=== PATIENT | female | born 1950 | race Caucasian/White ===

== ENCOUNTER 2017-04-03 15:35 | Outpatient (CLI) | payer MEDICARE, OTHER | END 2017-04-03 15:36 | disposition home or self-care (01) | LOC: BICMAMMO 15:35 | PROVIDERS: ATTEND Internal Medicine | DX: Z12.31 Encounter for screening mammogram for malignant neoplasm of breast (principal); Z80.3 Family history of malignant neoplasm of breast | CPT/HCPCS: 77063; 77067 ==

== ENCOUNTER 2018-10-29 14:42 | Outpatient (CLI) | payer MEDICARE, OTHER ==
--- NOTE | 2018-11-02 06:47 | MMO ---
Bilateral MAMMO Bilat Screen [facility]. CLINICAL HISTORY: Patient is 67 years old and is seen for screening. The patient has the following family history of breast cancer: paternal aunt, at age 80. The patient has no personal history of cancer. The patient has a history of left Excisional Biopsy in 1990 - benign. VIEWS: The views performed were: bilateral craniocaudal with tomosynthesis and bilateral mediolateral oblique with tomosynthesis. FILMS COMPARED: The present examination has been compared to prior imaging studies performed at [facility] on 11/05/2011, 01/06/2014, 11/06/2015 and 04/03/2017. MAMMOGRAM FINDINGS: The breasts are extremely dense, which may lower the sensitivity of mammography. There are benign appearing calcifications seen in both breasts. There are no suspicious masses, suspicious calcifications, or new areas of architectural distortion. IMPRESSION: THERE IS NO MAMMOGRAPHIC EVIDENCE OF MALIGNANCY. A ROUTINE FOLLOW-UP MAMMOGRAM IN 1 YEAR IS RECOMMENDED. THE RESULTS OF THIS EXAM WERE SENT TO THE PATIENT. ACR BI-RADS Category 2 - Benign finding MAMMOGRAPHY NOTE: 1. A negative mammogram report should not delay a biopsy if a dominant of clinically suspicious mass is present. 2. Approximately 10% to 15% of breast cancers are not detected by mammography. 3. Adenosis and dense breasts may obscure an underlying neoplasm. Reported by: BONNY BUTTS MD Electonically Signed: [id number]
== END 2018-10-29 14:43 | disposition home or self-care (01) ==
LOC: BICMAMMO 14:42
PROVIDERS: ATTEND Internal Medicine
DX: Z12.31 Encounter for screening mammogram for malignant neoplasm of breast (principal); Z80.3 Family history of malignant neoplasm of breast
CPT/HCPCS: 77063; 77067

== ENCOUNTER 2019-01-17 13:59 | Outpatient (CLI) | payer MEDICARE, OTHER ==
--- NOTE | 2019-01-17 14:42 | CT ---
CT ABDOMEN AND PELVIS WITHOUT CONTRAST: Date: 01/17/19 PROVIDED CLINICAL HISTORY: Microhematuria. FINDINGS: No comparisons. The visualized lung bases are free of significant opacity. There is no evidence for urinary tract calculi or hydronephrosis. Circumscribed foci of fluid attenua tion seen within each kidney, incompletely characterized in the absence of IV contrast, but statistic ally reflecting cysts. The solid abdominal organs are suboptimally evaluated in the absence of IV contrast material, but dem onstrate an otherwise unremarkable unenhanced CT appearance. There is no bowel dilatation, inflammatory fat stranding, free fluid, or lymph node enlargement appar ent. There is moderate colonic fecal retention. The osseous structures demonstrate no concerning lytic or blastic lesions. Lumbar spine degenerative changes are seen. IMPRESSION: No evidence for urinary tract calculi or hydronephrosis. POS: TPC
== END 2019-01-17 14:00 | disposition home or self-care (01) ==
LOC: BICCT 13:59
PROVIDERS: ATTEND Urology
DX: R31.29 Other microscopic hematuria (principal)
CPT/HCPCS: 74176

== ENCOUNTER 2019-02-02 13:12 | Outpatient (CLI) | payer MEDICARE, OTHER ==
--- NOTE | 2019-02-02 14:34 | ULT ---
BILATERAL RENAL ULTRASOUND: HISTORY: Microscopic hematuria. Renal cyst. FINDINGS: The right kidney measures 8.9 cm in length and the left kidney measures 8.7 cm in length. No hydronep hrosis is seen on either side. There is a 2.7 x 2.5 x 2.1 cm cyst in the superomedial aspect of the r ight kidney. The left kidney is difficult to evaluate due to overlying bowel gas. The urinary bladder is unremarkable. IMPRESSION: Right renal cyst. POS: OFF
== END 2019-02-02 13:13 | disposition home or self-care (01) ==
LOC: BICULT 13:12
PROVIDERS: ATTEND Urology
DX: N28.1 Cyst of kidney, acquired (principal); R31.29 Other microscopic hematuria
CPT/HCPCS: 76770

== ENCOUNTER 2019-11-22 14:53 | Outpatient (CLI) | payer MEDICARE ==
--- NOTE | 2019-11-22 15:54 | MRI ---
MRI Lower Ext Jt Lt WO Con History: M 23.92 internal derangement of left knee Comparison: Radiograph November 08, 2019 Findings: Medial meniscus: Superior articular surface flap tear medial meniscal body with minimal gut ter extrusion. There is also volume loss of the free at the posterior horn. Mild intrameniscal degenerative signal extends into the root. Lateral meniscus: Relatively high-grade radial tear through the root posterior horn lateral meniscus involving effusion and mediastinal extensive degenerative scar or granulation tissue at the root attachment. Mild intraligamentous mucinous degeneration anterior cruciate ligament. Posterior cruciate ligament i s intact. The MCL and LCL are intact. Extensor mechanism: Quadriceps tendon, patella and patellar tendon are intact. Cartilage: Patellofemoral: Few full-thickness cartilage fissures of the lateral patellar facet with early subcor tical reactive marrow change although hematuria the cartilage is maintained. Medial compartment: Mild chondral fraying without full-thickness defect. Lateral compartment: Mild chondral fraying without full-thickness defect Muscles: Muscle signal and bulk is normal. Soft tissues: Small popliteal cyst without dehiscence. Impression: 1. Superior articular surface flap tear medial meniscal body with minimal gutter extrusion. There is volume loss of the free edge and portion of the intermediate zone posterior horn with mild degenerative signal extending to the root. 2. Abnormal globular signal at the posterior root lateral meniscus with concern for high-grade chroni c radial tear with scar and granulation tissue in situ. 3. Mild free edge fraying and volume loss of the lateral meniscal body. 4. Aside from a few full-thickness cartilage fissures of the lateral patellar facet, the tricompartme ntal cartilage is relatively maintained for age. 5. Nonleaking popliteal cyst.
== END 2019-11-22 14:54 | disposition home or self-care (01) ==
LOC: BICMRI 14:53
PROVIDERS: ATTEND Orthopaedic Surgery
DX: M23.92 Unspecified internal derangement of left knee (principal); S83.282A Other tear of lateral meniscus, current injury, left knee, initial encounter; S83.242A Other tear of medial meniscus, current injury, left knee, initial encounter; M71.22 Synovial cyst of popliteal space [Baker], left knee; M25.862 Other specified joint disorders, left knee

== ENCOUNTER 2020-02-28 15:28 | Outpatient (CLI) | payer MEDICARE, OTHER ==
--- NOTE | 2020-02-28 15:59 | RAD ---
Left foot 3 views HISTORY: Injury. FINDINGS: Joint spaces are preserved. Well-corticated large defect involving the medial aspect of the first metatarsal head prior surgical reaction. No aggressive osseous erosions. Very mild osteophytosis. Lisfranc joint alignment is anatomic. Plantar arch is maintained. A minimally displaced transverse fracture through the midportion distal phalanx second toe is present with apex plantar angulation. No intra-articular extension. IMPRESSION : Left second toe distal phalanx fracture.
== END 2020-02-28 15:29 | disposition home or self-care (01) ==
LOC: BICRAD 15:28
PROVIDERS: ATTEND Podiatrist
DX: S99.222A Salter-Harris Type II physeal fracture of phalanx of left toe, initial encounter for closed fracture (principal); S92.532A Displaced fracture of distal phalanx of left lesser toe(s), initial encounter for closed fracture

== ENCOUNTER 2023-03-20 11:20 | Outpatient (CLI) | payer MEDICARE | END 2023-03-20 11:21 | disposition home or self-care (01) | LOC: BICMAMMO 11:20 | PROVIDERS: ATTEND Family Medicine | DX: Z12.31 Encounter for screening mammogram for malignant neoplasm of breast (principal) | CPT/HCPCS: 77063; 77067 ==

== ENCOUNTER 2023-05-01 15:56 | Outpatient (CLI) | payer MEDICARE | END 2023-05-01 15:57 | disposition home or self-care (01) | LOC: ULT 15:56 | PROVIDERS: ATTEND Family Medicine | DX: M79.605 Pain in left leg (principal); M79.89 Other specified soft tissue disorders; L03.91 Acute lymphangitis, unspecified ==

== ENCOUNTER 2024-04-12 14:20 | Outpatient (CLI) | payer MEDICARE | END 2024-04-12 14:21 | disposition home or self-care (01) | LOC: BICMAMMO 14:20 | PROVIDERS: ATTEND Family Medicine | DX: Z12.31 Encounter for screening mammogram for malignant neoplasm of breast (principal); Z80.3 Family history of malignant neoplasm of breast; Z91.89 Other specified personal risk factors, not elsewhere classified | CPT/HCPCS: 77063; 77067 ==

== ENCOUNTER 2024-11-11 16:14 | Outpatient (CLI) | payer MEDICARE | END 2024-11-11 16:15 | disposition home or self-care (01) | LOC: BICRAD 16:14 | PROVIDERS: ATTEND Orthopaedic Surgery | DX: M54.2 Cervicalgia (principal); M47.812 Spondylosis without myelopathy or radiculopathy, cervical region | CPT/HCPCS: 72040 ==